=== PATIENT | male | born 1970 | race African-American/Black ===

== ENCOUNTER 2018-09-17 10:03 | Inpatient (IN) | payer OTHER, MEDICAID ==
[~2018-09-17] VITALS: Ht 190.5 cm; Wt 88.0 kg
[~2018-09-17 10:03] MED LIST: CARV25TA55 PO; LISI40TA4 PO; LON10 PO; NOR10 PO; SPIR25TA PO
--- NOTE | 2018-09-17 10:10 | NUR ---
Note sheldon in EDM - 09/17/18 at 1031 by [email or web address] Pt presents to ER as he was sent by his dialysis facility for "low hemoglobin". Pt also states he's been coughing and feels slightly sob x 3 weeks. Pt current bp 203/141 but states his bp is "normally high". otherwise, pt denies any other complaint, AOX4, ambulatory.
[2018-09-17 10:12] VITALS: BP_SYST 210
--- NOTE | 2018-09-17 10:19 | NUR ---
Pt placed in bed 2
--- NOTE | 2018-09-17 10:25 | NUR ---
ER Dr. Martin at bedside examining patient.
--- NOTE | 2018-09-17 10:40 | NUR ---
# 20 gauge angiocath placed to L UPPER ARM. Use of asceptic technique. Opsite placed over site. Blood return noted. Blood for lab drawn from site. Flushed with 10 cc of normal saline. No evidence of infiltration noted. Patient tolerated well.
[2018-09-17 11:03] LABS: HEMATOCRIT 25.7 % (36-54); HEMOGLOBIN 8.2 g/dL (14.0-18.0); MEAN CORPUSCULAR HEMOGLOBIN 30 pg (27-31); MEAN CORPUSCULAR HGB CONC 32 % (32-36); MEAN CORPUSCULAR VOLUME 94 fL (79.0-98.0); RED BLOOD CELL COUNT(AUTO) 2.74 MIL/uL (4.2-6.2); WHITE BLOOD COUNT (AUTO) 9.7 K/uL (4.8-10.8)
[2018-09-17 11:04] LABS: BASOPHILS % (AUTO) 0.3 % (0.0-2.0); EOSINOPHILS # (AUTO) 0.3 K/uL (0.0-0.4); EOSINOPHILS % (AUTO) 2.9 % (0.0-4.0); LYMPHOCYTES # (AUTO) 1.2 K/uL (1.0-5.5); MONOCYTES # (AUTO) 0.6 K/uL (0.0-1.0); MONOCYTES % (AUTO) 5.7 % (1.7-9.3); NEUTROPHILS # (AUTO) 7.6 K/uL (1.8-7.7); NEUTROPHILS % (AUTO) 79.1 % (40.0-70.0); PLATELET COUNT (AUTO) 122 K/uL (130-430); RED CELL DISTRIBUTION WIDTH 20.8 % (9.0-15.0)
[2018-09-17 11:12] LABS: CALCIUM 9.4 mg/dL (8.4-11.0); CREATININE 5.8 mg/dL (0.55-1.30); POTASSIUM 3.8 mmol/L (3.5-5.1)
[2018-09-17 11:13] LABS: ALBUMIN 3.2 g/dL (3.4-4.8); TOTAL BILIRUBIN 1.3 mg/dL (0.0-1.0)
--- NOTE | 2018-09-17 11:20 | NUR ---
Dr. Martin at bedside speaking with pt.
[2018-09-17] MEDS ORDERED: hydrALAZINE HCL 20 MG/ML VIAL IVP ONE (11:30)
--- NOTE | 2018-09-17 11:35 | NUR ---
Pt unable to provide list of home medications at this time, but has given instructions to his mother who will go home and retrieve meds.
[2018-09-17] MEDS ORDERED: NITROGLYCERIN 1 INCH (GM) OINT. TP ONE (11:45)
[2018-09-17] MEDS ORDERED: FUROSEMIDE 100 MG/10 ML VIAL IVP ONE (11:45)
--- NOTE | 2018-09-17 12:03 | NUR ---
Pt medicated as ordered by ER Dr. Martin. Pt tolerated well; will continue to monitor.
--- NOTE | 2018-09-17 12:10 | NUR ---
Patient will be admitted to care of Dr. Manjarrez. Admitted to tele unit. Will go to room 110a. Belongings list completed. Summary report printed. Report will be given at bedside.
--- NOTE | 2018-09-17 12:12 | NUR ---
CONSULTATION PAGED/CALLED Reason for Consultation: [] DIALYSIS, (ESRD) Person Who was Notified: [] FORD Consulting Physician: [] DR Shagufta MAYO [employer] Executive Specialty: [] ORDNANCE TRUCK INSTALLATION SUPERVISOR Ordering Physician: [] DR ANDERSEN
--- NOTE | 2018-09-17 12:15 | NUR ---
ADMISSION NOTE Received patient from ER via gurney. Patient admitted with diagnosis of CHF AND FLUID OVERLOAD. Patient is awake, alert, oriented X 4. Patient oriented to hospital room, call light, toileting, pain management and safety-teach back done. Patient informed that JASE will be RN nurse and that their room number is 110a. Personal belongings checked and Belongings List documented. Call light within reach.
[2018-09-17 12:22] VITALS: BP_SYST 191
[2018-09-17] MEDS ORDERED: LISINOPRIL 20 MG TABLET PO ONE (13:00)
[2018-09-17] MEDS ORDERED: MINOXIDIL 10 MG TABLET (LONITEN) PO ONE (13:00)
[2018-09-17] MEDS ORDERED: EPOETIN ALFA 20,000 UNITS/ML VIAL SUBCUT ONE (13:00)
[2018-09-17] MEDS ORDERED: CARVEDILOL 25 MG TABLET (COREG) PO ONE (13:00)
[2018-09-17] MEDS ORDERED: amLODIPine BESYLATE 10 MG TABLET PO ONE (13:00)
--- NOTE | 2018-09-17 14:15 | NUR ---
RN ROUNDS PATIENT IS RESTING COMFORTABLY IN BED. NO S/S OF DISTRESS OR SOB. PATIENT IS ALERT AND ORIENTED. PATIENT ASKED FOR A NASAL CANNULA BECAUSE OF THE FEELING OF SOB. PATIENT PUT ON 2 L NASAL CANNULA. HEMODIALYSIS CONSENT SIGNED AN ORDERS GIVEN TO MEDICAL RESIDENT FOR TOMORROW. PATIENT AWARE. NO NEEDS AT THIS TIME. CALL LIGHT IN REACH, BED IN LOWEST POSITION, AND WILL CONTINUE TO MONITOR.
[2018-09-17 16:02] VITALS: BP_SYST 179
[2018-09-17] MEDS ORDERED: hydrALAZINE HCL 20 MG/ML VIAL IVP PRN (16:15)
[2018-09-17] MEDS ORDERED: cloNIDine HCL 0.2 MG TABLET PO PRN (16:15)
[2018-09-17 16:29] VITALS: BP_SYST 150
--- NOTE | 2018-09-17 16:45 | NUR ---
DNR STATUS DR. ANDERSEN DISCUSSED WITH PATIENT AT BEDSIDE OVER CODE STATUS. PATIENT STATES THAT HE DOES NOT WANT RESUSCITATION EFFORTS MADE. DR. ANDERSEN DISCUSSES AT LENGTH WHAT THAT ENTAILED AND ALL THE POSSIBLE OPTIONS AVAILABLE. PATIENT VERBALIZED UNDERSTANDING AND SAID HE WOULD LIKE TO BE DNR. CODE STATUS FORM FILLED OUT AND SIGNED BY DR. ANDERSEN AND RNJASE.
--- NOTE | 2018-09-17 16:49 | NUR ---
CONSULTATION PAGED/CALLED Reason for Consultation: [] ELEVATED TROP Person Who was Notified: [] DEEPTHI Consulting Physician: [] DR POTTER NUMERICAL CONTROL NESTING OPERATOR FOR DR GALEANO Iuss Master Analyst Specialty: [] CARDIOLOGY Ordering Physician: [] DR June ANDERSEN
--- NOTE | 2018-09-17 16:50 | NUR ---
CONSULTATION PAGED/CALLED Reason for Consultation: [] RENAL FAILURE Person Who was Notified: [] KORIN Consulting Physician: [] DR DILEEP Hong Inclusion Paraeducator Specialty: [] NEPHROLOGY Ordering Physician: [] DR ANDERSEN
[2018-09-17] MEDS ORDERED: NIFE-2 PO (17:12)
--- NOTE | 2018-09-17 18:38 | NUR ---
CLOSING NOTE: PATIENT IS RESTING COMFORTABLY IN BED. NO S/S OF DISTRESS OR SOB. PATIENT IS ALERT AND ORIENTED. ALL NEEDS MET DURING SHIFT. CALL LIGHT IN REACH, BED IN LOWEST POSITION, AND WILL GIVE REPORT TO NIGHT NURSE.
[2018-09-17 20:10] VITALS: BP_SYST 134
--- NOTE | 2018-09-17 20:10 | NUR ---
Opening notes/Refused bed alarm Pt AAOx4, VSS. no acute distress noted. Pt denies any pain at this time. IV saline lock L. AC 20G clear, patent. R. chest portacath dressing C/D/I. David SCD's placed. Pt refused bed alarm on. Updated with plan of care and HD order for tomorrow, pt verbalized understanding. Call light within reach. Personal cane at bedside. Will continue to monitor.
[2018-09-17] MEDS: SPIRONOLACTONE 25 MG TABLET (ALDACTONE) PO SCH (20:29)
[2018-09-17] MEDS: MINOXIDIL 10 MG TABLET (LONITEN) PO SCH (20:29)
[2018-09-17] MEDS: CARVEDILOL 25 MG TABLET (COREG) PO SCH (20:30)
--- NOTE | 2018-09-17 22:10 | NUR ---
Rounds Pt asleep. No s/s distress noted. Call light within reach. David SCDs on. To monitor.
[2018-09-18] VITALS (7 sets, daily range): BP systolic 134–167
--- NOTE | 2018-09-18 00:40 | NUR ---
Rounds Pt asleep. No s/s distress noted. Call light within reach. Bed low, locked, siderails up. To monitor.
--- NOTE | 2018-09-18 03:05 | NUR ---
Rounds Pt asleep. Respirations unlabored. Safety measures in place. Call light within reach. To monitor.
--- NOTE | 2018-09-18 06:40 | NUR ---
Closing notes Pt asleep, easily arousable. SR on the monitor. No c/o pain. IV saline lock L. AC 20G clear, patent. Pt awaiting dialysis today. Call light within reach. All needs met throughout the night. To endorse to AM nurse.
[2018-09-18 07:13] LABS: BASOPHILS % (AUTO) 0.4 % (0.0-2.0); EOSINOPHILS # (AUTO) 0.3 K/uL (0.0-0.4); EOSINOPHILS % (AUTO) 3.9 % (0.0-4.0); HEMATOCRIT 23.8 % (36-54); HEMOGLOBIN 7.9 g/dL (14.0-18.0); LYMPHOCYTES # (AUTO) 1.6 K/uL (1.0-5.5); MEAN CORPUSCULAR HEMOGLOBIN 31 pg (27-31); MEAN CORPUSCULAR HGB CONC 33 % (32-36); MEAN CORPUSCULAR VOLUME 94 fL (79.0-98.0); MONOCYTES # (AUTO) 0.4 K/uL (0.0-1.0); NEUTROPHILS # (AUTO) 5.2 K/uL (1.8-7.7); NEUTROPHILS % (AUTO) 67.7 % (40.0-70.0); PLATELET COUNT (AUTO) 99 K/uL (130-430); RED BLOOD CELL COUNT(AUTO) 2.53 MIL/uL (4.2-6.2); RED CELL DISTRIBUTION WIDTH 21.5 % (9.0-15.0); WHITE BLOOD COUNT (AUTO) 7.5 K/uL (4.8-10.8)
--- NOTE | 2018-09-18 07:40 | NUR ---
AM NOTES- IN BED, AWAKE ALERT AND ORIENTED. DENIES ANY PAIN OR DISCOMFORT. AMBULATE WITH CANE TO THE BATHROOM. ENC TO CALL FOR HELP. REFUSES BED ALARM. ON O2 2L. HAS OCCASSIONAL COUGH. IVL. SCAHEDULED FOR HD TODAY. SAFETY PRECAUTION OBSERVED. CALL LIGHT IN REACH. WILL MONITOR.
[2018-09-18 07:53] LABS: POTASSIUM 4.5 mmol/L (3.5-5.1)
[2018-09-18 07:54] LABS: CALCIUM 9.5 mg/dL (8.4-11.0)
[2018-09-18 07:56] LABS: CREATININE 8.34 mg/dL (0.55-1.30)
[2018-09-18 07:58] LABS: PHOSPHORUS 4.5 mg/dL (2.7-4.5)
[2018-09-18 07:59] LABS: ALBUMIN 2.7 g/dL (3.4-4.8); FREE T4 (FREE THYROXINE) 1.4 ng/dL (0.6-1.6); THYROID STIMULATING HORMONE 0.95 uIu/mL (0.34-4.82); TOTAL BILIRUBIN 0.9 mg/dL (0.0-1.0)
--- NOTE | 2018-09-18 08:00 | NUR ---
NOTE- PT STATED THAT HE HAS ALLERGIC TO WHEAT. CALLED AND INFORMED DIETARY.
[2018-09-18] MEDS: MINOXIDIL 10 MG TABLET (LONITEN) PO SCH ×2 (09:00→21:46)
[2018-09-18] MEDS: CARVEDILOL 25 MG TABLET (COREG) PO SCH ×2 (09:00→21:45)
--- NOTE | 2018-09-18 10:11 | NUR ---
Notes In bed, watching tv. no distress noted. Seen by Dr. Chin at bedside. Aware of troponin and 2d echo results.
--- NOTE | 2018-09-18 10:12 | NUR ---
MEDs B/P meds held. Pt will have dialysis today. Pt made aware.
[2018-09-18] MEDS ORDERED: hydrALAZINE HCL 25 MG TABLET PO ONE (10:30)
--- NOTE | 2018-09-18 11:53 | NUR ---
Notes In bed, resting denies any pain or discomfort. no distress noted.
--- NOTE | 2018-09-18 13:03 | NUR ---
HD Dialysis nurse at bedside to start dialysis.
--- NOTE | 2018-09-18 14:58 | NUR ---
Notes- Pt still on dialysis at this time. no acute distress noted.
--- NOTE | 2018-09-18 16:18 | NUR ---
HD- HD DONE WITH 2L OUT. B/P 148/91, WILL GIVE B/P MEDS.
[2018-09-18] MEDS: amLODIPine BESYLATE 10 MG TABLET PO SCH (16:24)
[2018-09-18] MEDS: LISINOPRIL 20 MG TABLET PO SCH (16:24)
[2018-09-18] MEDS ORDERED: EPOETIN ALFA 10,000 UNITS/ML VIAL SUBCUT ONE (18:15)
[2018-09-18] MEDS ORDERED: SOD FERRIC GLUC COMPLEX/SUC 125 MG in NS 100 ML IV SCH (18:15)
--- NOTE | 2018-09-18 18:16 | NUR ---
MD ROUNDS Seen by Dr. Manjarrez at bedside.
--- NOTE | 2018-09-18 18:28 | NUR ---
Notes In bed, eating dinner. Denies any pain or discomfort. just feel weak after dialysis. No acute distress noted. will continue to monitor.
--- NOTE | 2018-09-18 19:00 | NUR ---
change of shift.pt.presents hx;hemo-dialysis.pt.dialized;09/18/18.pt.presents perma -cath;rt.svc. dsg intact.pt.presents quiescent affect,no c/o pain,nausea.pt.capable to reposition self.call sridhar valdez w/in the pt's reach.family member @bedside.
--- NOTE | 2018-09-18 20:00 | NUR ---
pt.assessed.v/s assessed;values w/in normal limits.no c/o pain,nausea.i have apprised the pt.that snacks are available w/in shift.no requests@this hour.scd's are applied.i have inquired,to confirm,that the pt.refused the bed-alarm st.pt.stated he has refused the bed alarm set.pt.capable to reposition self.call light.telephone placed w/in the pt's reach.
--- NOTE | 2018-09-18 20:30 | NUR ---
pt.has requested snacks.i have provide the snacks.pt.has requested a blanket.i have provide the blanket;warmed. no additional requests.
--- NOTE | 2018-09-18 21:00 | NUR ---
2100p medications administered.i have administered;epogen:10k units;dose.iron;ferriclet;ivpb ordered:medication not available until the am;09/19/18.no requests@this hour.
--- NOTE | 2018-09-18 21:30 | NUR ---
pt.requested the scd's be removed;to facilitate the ambulation to the restroom. i have removed the sc'ds.
[2018-09-18] MEDS: NEPHROVITE, (FOLIC ACID/VITAMIN B COMP W-C 1 TAB) PO SCH (21:43)
[2018-09-18] MEDS: SPIRONOLACTONE 25 MG TABLET (ALDACTONE) PO SCH (21:44)
[2018-09-18] MEDS: hydrALAZINE HCL 25 MG TABLET PO SCH (21:45)
--- NOTE | 2018-09-18 22:00 | NUR ---
pt.assessed.pt.presents quiescent affect;calm,somnolent.general status stable.respiratory status stable. scd's sleeves re-pplied.pt.capable to reposition self.call light/telephone w/in the pt's reach.
--- NOTE | 2018-09-19 | NUR ---
pt.assessed.v/s assessed;values w/in normal limits.no c/o pain,nausea.no requests@this hour. pt./capable to reposition self.general status stable.respiratory status stable.call light/telephone w/in the pt's reach.
--- NOTE | 2018-09-19 02:00 | NUR ---
pt.assessed.pt.presents quiescent affect;calm,somnolent.general status stable.respiratory status stable. pt.capable to reposition self.call light./telephone w/in the pt's reach.
[2018-09-19 02:17] VITALS: BP_SYST 133
--- NOTE | 2018-09-19 02:30 | NUR ---
pt.assessed.pt.located in restroom.pt.presents cough;profound level.i inquired if the pt.requires medication. pt.stated he thinks so.i reviewed the [facility];med-list.no medications ordered for cough,nor hhn-treatments per r/t.pt.stated he presents headache;2/t cough;isolated back of eyes bilateral.review of the emar;med-list; no medication ordered;pain. to be paged.
--- NOTE | 2018-09-19 02:53 | NUR ---
PAGED x2 SECOND PAGE SENT OUT TO DR. ANDERSEN, SPOKE WITH TG
[2018-09-19] MEDS ORDERED: ACETAMINOPHEN 325 MG TABLET PO PRN (03:30)
[2018-09-19] MEDS ORDERED: guaiFENesin/DEXTROMETHORPHAN 118 ML PO PRN (03:30)
[2018-09-19] MEDS ORDERED: ACETAMINOPHEN 325 MG TABLET ONE (03:42)
[2018-09-19] MEDS: IPRATROPIUM/ALBUTEROL SULFATE 3 ML AMPUL.NEB (DUONEB) INH PRN ×3 (03:45→19:02)
[2018-09-19 03:49] VITALS: BP_SYST 133
[2018-09-19] MEDS ORDERED: guaiFENesin/DEXTROMETHORPHAN 10 ML UDC ONE (03:54)
[2018-09-19] MEDS: HYDROcodone/ACETAMIN 5-325 MG TAB (NORCO/ VICODIN) PO PRN ×4 (04:27→18:45)
--- NOTE | 2018-09-19 04:30 | NUR ---
had returned the previous pages; paged x3.i apprised of the pt's status;sob,cough, pain:headache;eyes. had ordered hhn;duo-neb;q-4hrs/p:sob,wheezes.robitussin;dm:po 10ml q-4hrs/cough. had originally ordered tylenol;650mg po;pain.i had apprised the pt.that had ordered tylenol: plain.pt stated,no it will not be effective;pt.refused the tylenol. was paged re;pain medication. ordered norco;5/325mg po q-4hrs/p pain.pt.had received the hhn treatment;initial treatment,the robitussin,the norco;5/325mg po tablet.to f/u in assessment of the efficacy of the medicinal interventions.
[2018-09-19] MEDS ORDERED: HYDROcodone/ACETAMIN 5-325 MG TAB (NORCO/ VICODIN) ONE (04:31)
--- NOTE | 2018-09-19 06:00 | NUR ---
pt.assessed.i inquired,of the pt.,his general status.pt.stated he feels much better.breathing pattern;calm,;un-labored. laborer aquatic life drawing blood sample@this hour.no c/o pain,nausea.no requests@this hour.i have weighed the pt.2/t;chf, hemo-dialysis.general status stable.respiratory status stable.call light/telephone w/in the pt's reach.
[2018-09-19 07:09] LABS: CALCIUM 9.5 mg/dL (8.4-11.0); POTASSIUM 4.3 mmol/L (3.5-5.1)
[2018-09-19 07:10] LABS: BASOPHILS % (AUTO) 0.1 % (0.0-2.0); EOSINOPHILS # (AUTO) 0.2 K/uL (0.0-0.4); EOSINOPHILS % (AUTO) 2.4 % (0.0-4.0); HEMATOCRIT 24.9 % (36-54); HEMOGLOBIN 8.1 g/dL (14.0-18.0); LYMPHOCYTES # (AUTO) 1.1 K/uL (1.0-5.5); MEAN CORPUSCULAR HEMOGLOBIN 31 pg (27-31); MEAN CORPUSCULAR HGB CONC 33 % (32-36); MEAN CORPUSCULAR VOLUME 95 fL (79.0-98.0); MONOCYTES # (AUTO) 0.6 K/uL (0.0-1.0); MONOCYTES % (AUTO) 5.8 % (1.7-9.3); NEUTROPHILS # (AUTO) 8.4 K/uL (1.8-7.7); NEUTROPHILS % (AUTO) 80.7 % (40.0-70.0); PLATELET COUNT (AUTO) 128 K/uL (130-430); RED BLOOD CELL COUNT(AUTO) 2.62 MIL/uL (4.2-6.2); RED CELL DISTRIBUTION WIDTH 21.2 % (9.0-15.0); TOTAL IRON BIND. CAPACITY 179 ug/dL (250-450); WHITE BLOOD COUNT (AUTO) 10.3 K/uL (4.8-10.8)
[2018-09-19 07:23] LABS: CREATININE 7.67 mg/dL (0.55-1.30)
--- NOTE | 2018-09-19 07:30 | NUR ---
PAGED PAGED STACY TERRY AT [phone] SPOKE WITH MOISE.
[2018-09-19 08:00] VITALS: BP_SYST 146
--- NOTE | 2018-09-19 08:00 | NUR ---
Opening Note/refuse bed alarm received report from date night sitter RN, pt resting in bed, A&Ox4, respirations even and unlabored on room air, no acute distress noted, IV site clean, dry, and intact, permacath to right upper chest clean, dry, and intact, no bleeding, pt educated on use of call light and asked to call for assistance, pt verbalized understanding, call light in reach, pt educated on use of bed alarm for pt safety, pt refusing bed alarm, bed in low and locked position, fall and aspiration precautions in place.
[2018-09-19] MEDS: MINOXIDIL 10 MG TABLET (LONITEN) PO SCH ×2 (08:07→20:14)
[2018-09-19] MEDS: amLODIPine BESYLATE 10 MG TABLET PO SCH (08:07)
[2018-09-19] MEDS: CARVEDILOL 25 MG TABLET (COREG) PO SCH ×2 (08:08→20:14)
[2018-09-19] MEDS: LISINOPRIL 20 MG TABLET PO SCH (08:08)
[2018-09-19] MEDS: NEPHROVITE, (FOLIC ACID/VITAMIN B COMP W-C 1 TAB) PO SCH (08:09)
[2018-09-19] MEDS: hydrALAZINE HCL 25 MG TABLET PO SCH ×2 (08:09→20:13)
--- NOTE | 2018-09-19 08:15 | NUR ---
Medication pt educated on medication use and side effects, pt verbalized understanding, tolerated medication administration well, no acute distress noted, fall and aspiration precautions in place.
[2018-09-19] MEDS: SOD FERRIC GLUC COMPLEX/SUC 125 MG in NS 100 ML IV SCH (08:50)
--- NOTE | 2018-09-19 09:01 | NUR ---
Pain Management/Medication pt complaint of pain 02/15 to head, pt educated on use and side effects effects of PRN pain medication and all medications, pt verbalized understanding, tolerated medication administration well, no acute distress noted, Dr. Chin at bedside speaking with pt, fall and aspiration precautions in place.
--- NOTE | 2018-09-19 10:57 | NUR ---
RN Rounds pt sleeping in bed, respirations even and unlabored on room air, no acute distress noted, fall and aspiration precautions in place.
[2018-09-19 12:04] VITALS: BP_SYST 131
[2018-09-19] MEDS: guaiFENesin/DEXTROMETHORPHAN 10 ML UDC PO PRN ×2 (12:59→23:58)
--- NOTE | 2018-09-19 13:03 | NUR ---
Pain Management/Cough/Medication pt complaint of pain 5/10 to head, pt complaint of cough, pt educated on use and side effects of PRN medications for pain and for cough, pt verbalized understanding, tolerated medication administration well, no acute distress noted, fall and aspiration precautions in place.
[2018-09-19] MEDS ORDERED: NEPHROVITE, (FOLIC ACID/VITAMIN B COMP W-C 1 TAB) PO ONE (14:30)
--- NOTE | 2018-09-19 14:50 | NUR ---
Medication pt educated on medication use and side effects, pt verbalized understanding, tolerated medication administration well, no acute distress noted, fall and aspiration precautions in place.
[2018-09-19 16:04] VITALS: BP_SYST 116
--- NOTE | 2018-09-19 16:47 | NUR ---
RN Rounds pt resting in bed, pt provided with ice chips, pt reports pain and cough are controlled at this time, no acute distress noted, fall and aspiration precautions in place.
--- NOTE | 2018-09-19 18:46 | NUR ---
Pain Management/Medication pt complaint of pain 5/10 to head, pt educated on use and side effects of PRN pain medication, pt verbalized understanding, tolerated medication administration well, no acute distress noted, no additional needs at this time, fall and aspiration precautions in place.
--- NOTE | 2018-09-19 19:15 | NUR ---
Closing Note pt resting in bed, A&Ox4, respirations even and unlabored on room air, no acute distress noted, IV site clean, dry, and intact, permacath to right upper chest clean, dry, and intact, pt educated on use of call light and asked to call for assistance, pt verbalized understanding, call light in reach, pt educated on use of bed alarm for pt safety, pt refusing bed alarm, bed in locked and low position, fall and aspiration precautions in place, care endorsed to Emperatriz WALSH.
--- NOTE | 2018-09-19 19:40 | NUR ---
ROUNDS PATIENT IN BED, NOT IN DISTRESS, VITALS STABLE, DENIES ANY PAIN AND DISCOMFORT AT THIS TIME. ASSESSMENT DONE AND DOCUMENTED. SEE FLOWSHEET. NEEDS ATTENDED TO. SAFETY AND FALL PRECAUTION MEASURES IN PLACED. BED IN LOW AND LOCKED POSITION. CALL LIGHT PLACED WITHIN REACH.
[2018-09-19] MEDS: SPIRONOLACTONE 25 MG TABLET (ALDACTONE) PO SCH (20:15)
--- NOTE | 2018-09-19 21:12 | NUR ---
MEDICATION DUE MEDICATIONS GIVEN SCHEDULED, TOLERATED WELL. WILL CONTINUE TO MONITOR.
--- NOTE | 2018-09-20 00:12 | NUR ---
PATIENT RESTING: Patient resting quietly. No acute distress noted. Vital signs within normal range.
[2018-09-20 00:41] VITALS: BP_SYST 126
--- NOTE | 2018-09-20 02:13 | NUR ---
ROUNDS PATIENT ASLEEP, VITALS STABLE, NO SOB NOR PAIN AND DISCOMFORT NOTED. WILL CONTINUE TO MONITOR.
--- NOTE | 2018-09-20 04:13 | NUR ---
PATIENT RESTING: Patient resting quietly. No acute distress noted. Vital signs within normal range.
--- NOTE | 2018-09-20 06:55 | NUR ---
CLOSING NOTES PATIENT AWAKE, VITALS STABLE, NO PAIN AT THIS TIME. ALL NEEDS ATTENDED TO. SAFETY AND FALL PRECAUTION MEASURES MAINTAINED. CALL LIGHT PLACED WITHIN REACH.
--- NOTE | 2018-09-20 07:30 | NUR ---
Opening Note: Patient laying in bed resting. No signs of pain or distress noted. Breathing is even and unlabored with no distress noted. IV patent and intact. SCD's in place. Safety precautions in place; bed in lowest position, wheels locked, side rails x3, and call light within reach. Patient refusing bed alarm. No needs at this time. Will continue to monitor.
[2018-09-20 08:30] VITALS: BP_SYST 159
[2018-09-20] MEDS: NEPHROVITE, (FOLIC ACID/VITAMIN B COMP W-C 1 TAB) PO SCH (08:33)
[2018-09-20] MEDS: hydrALAZINE HCL 25 MG TABLET PO SCH (08:34)
[2018-09-20] MEDS: LISINOPRIL 20 MG TABLET PO SCH (08:34)
[2018-09-20] MEDS: amLODIPine BESYLATE 10 MG TABLET PO SCH (08:34)
[2018-09-20] MEDS: SOD FERRIC GLUC COMPLEX/SUC 125 MG in NS 100 ML IV SCH (08:35)
[2018-09-20] MEDS: MINOXIDIL 10 MG TABLET (LONITEN) PO SCH (08:35)
[2018-09-20] MEDS: CARVEDILOL 25 MG TABLET (COREG) PO SCH (08:35)
--- NOTE | 2018-09-20 08:48 | NUR ---
Patient hostile/aggressive: Patient yelling and cussing at nurses, kicking them out of room. Patient offered shower and refused. Patient refused bed alarm and SCD's. Patient refused assessment of lung sounds.
[2018-09-20] MEDS ORDERED: NEPHROVITE, (FOLIC ACID/VITAMIN B COMP W-C 1 TAB) PO SCH (09:00)
--- NOTE | 2018-09-20 10:30 | NUR ---
Permacath Dressing: Permacath dressing was dirty and coming off, changed in sterile technique. New dressing applied, clean, dry and intact.
[2018-09-20 11:49] VITALS: BP_SYST 122
--- NOTE | 2018-09-20 12:14 | NUR ---
Rounds: Patient in bed eating lunch, no distress noted. Morning medications tolerated well. Safety precautions in place and call light within reach. No needs at this time. Will continue to monitor.
--- NOTE | 2018-09-20 13:55 | NUR ---
Rounds: Patient laying in bed asleep. No signs of pain or discomfort. No signs of SOB or respiratory distress. Will continue to monitor.
[2018-09-20] MEDS ORDERED: EPOETIN ALFA 10,000 UNITS/ML VIAL SUBCUT ONE (16:00)
--- NOTE | 2018-09-20 16:00 | NUR ---
Discharge Arrangement: Per patient "I live with my mom but I can't go home today my whole family is out of town, I'll probably have a ride tomorrow morning." Called mother Sarah Go, but no answer. Dr. Manjarrez made aware. Will endorse to NOC, nurse to follow up with family for discharge arrangements. Addendum: 09/20/18 at 1634 by Delmi Dior RN Asked patient if he would like for me to help make arrangement for transportation to home, per patient "I don't have a house [place] how am i supposed to get in."
[2018-09-20 18:58] VITALS: BP_SYST 122
--- NOTE | 2018-09-20 19:12 | NUR ---
D/C Patient Patient given medication reconciliation form and D/C instructions. Exit Care provided. Patient verbalized understanding. MD discussed with patient the results and treatment provided. Ambulatory with steady gait for discharge to home. Patient in stable condition, ID band removed. IV catheter removed, intact and dressing applied, no active bleeding. Patient educated on pain management. All belongings sent with patient. Discharge instructions given.
[2018-09-21 13:13] LABS: FERRITIN 1050 ng/mL (30-400)
== END 2018-09-20 19:12 | disposition home or self-care (01) | DRG 291 ==
LOC: SED 10:03 → STU 11:39 → SMU 09-20 10:25
PROVIDERS: ADMIT Internal Medicine; ATTEND Internal Medicine
PROC: 5A1D70Z Performance of Urinary Filtration, Intermittent, Less than 6 Hours Per Day (ICD-10-PCS; principal; 2018-09-18)
DX: I13.2 Hypertensive heart and chronic kidney disease with heart failure and with stage 5 chronic kidney disease, or end stage renal disease (principal); N18.6 End stage renal disease; I50.41 Acute combined systolic (congestive) and diastolic (congestive) heart failure; K92.2 Gastrointestinal hemorrhage, unspecified; Z66 Do not resuscitate; D63.1 Anemia in chronic kidney disease; J20.9 Acute bronchitis, unspecified; Z99.2 Dependence on renal dialysis; Z88.8 Allergy status to other drugs, medicaments and biological substances; Z79.899 Other long term (current) drug therapy
CPT/HCPCS: 36415; 71045; 80048; 80053; 80061; 82607; 82728; 83540-TC; 83550-TC; 83880; 84100-TC; 84439; 84443-TC; 84484; 85025; 87081; 90935; 93005; 93306; 94640; 96374; 96375; 99285; G0378; J0360; J0885; J1940; J2916; J7030; J7620

== ENCOUNTER 2019-01-04 08:35 | Inpatient (IN) | payer OTHER, MEDICAID ==
[~2019-01-04] VITALS: Ht 193 cm; Wt 79.6 kg
[~2019-01-04 08:35] MED LIST changes: +NIFE-2 PO
[2019-01-04 08:40] VITALS: BP_SYST 195
[2019-01-04] MEDS ORDERED: hydrALAZINE HCL 20 MG/ML VIAL IVP ONE (09:00)
[2019-01-04 09:43] LABS: BASOPHILS % (AUTO) 0.3 % (0.0-2.0); EOSINOPHILS # (AUTO) 0.1 K/uL (0.0-0.4); EOSINOPHILS % (AUTO) 0.8 % (0.0-4.0); HEMATOCRIT 26.1 % (36-54); HEMOGLOBIN 8.5 g/dL (14.0-18.0); MEAN CORPUSCULAR HEMOGLOBIN 30 pg (27-31); MEAN CORPUSCULAR HGB CONC 33 % (32-36); MEAN CORPUSCULAR VOLUME 92 fL (79.0-98.0); MONOCYTES # (AUTO) 0.8 K/uL (0.0-1.0); MONOCYTES % (AUTO) 6.6 % (1.7-9.3); NEUTROPHILS # (AUTO) 10.3 K/uL (1.8-7.7); NEUTROPHILS % (AUTO) 84.3 % (40.0-70.0); PLATELET COUNT (AUTO) 112 K/uL (130-430); RED BLOOD CELL COUNT(AUTO) 2.83 MIL/uL (4.2-6.2); WHITE BLOOD COUNT (AUTO) 12.2 K/uL (4.8-10.8)
[2019-01-04 09:45] LABS: ANION GAP 8 (5-15); CALCIUM 9.3 mg/dL (8.4-11.0); CHLORIDE 103 mmol/L (98-107); GLUCOSE 103 mg/dL (70-99); POTASSIUM 4.3 mmol/L (3.5-5.1); SODIUM SERUM 136 mmol/L (136-145); UREA NITROGEN, BLOOD 38 mg/dL (8-21)
[2019-01-04 09:50] LABS: ALANINE AMINOTRANSFERASE 7 U/L (12-78); ALBUMIN 3.1 g/dL (3.4-4.8); ASPARTATE AMINOTRANSFERASE < 5 U/L (10-37); TOTAL BILIRUBIN 1.3 mg/dL (0.0-1.0)
[2019-01-04 09:57] LABS: CREATININE 12.14 mg/dL (0.55-1.30); GFR AFRICAN AMERICAN 6 mL/min (>90)
[2019-01-04] MEDS ORDERED: KETOROLAC TROMETHAMINE 30 MG VIAL IVP ONE (10:00)
[2019-01-04 10:04] LABS: INR 1.1 (0.80-1.20); PROTHROMBIN TIME 11.4 SECS (9.5-12.5)
[2019-01-04] MEDS ORDERED: LABETALOL 100 MG/ 20ML VIAL IVP ONE (10:15)
[2019-01-04] MEDS ORDERED: cefTRIAXone 1 GM in D5W 50 ML IV ONE (11:45)
[2019-01-04] MEDS ORDERED: cefTRIAXone 1 GM VIAL ONE (12:17)
[2019-01-04 12:26] VITALS: BP_SYST 159
[2019-01-04] MEDS ORDERED: ALBUTEROL SULFATE 0.083% 2.5 MG/3 ML VIAL.NEB INH PRN (16:00)
[2019-01-04] MEDS ORDERED: IPRATROPIUM BROM 0.5 MG/2.5 ML VIAL.NEB (ATROVENT) INH PRN (16:00)
[2019-01-04 16:13] VITALS: BP_SYST 169
[2019-01-04 16:28] VITALS: BP_SYST 159
[2019-01-04] MEDS: ALBUTEROL SULFATE 0.083% 2.5 MG/3 ML VIAL.NEB INH SCH (19:00)
[2019-01-04] MEDS: IPRATROPIUM BROM 0.5 MG/2.5 ML VIAL.NEB (ATROVENT) INH SCH (19:00)
[2019-01-04 20:00] VITALS: BP_SYST 179
[2019-01-04] MEDS: cefTRIAXone 1 GM in D5W 50 ML IV SCH (21:22)
[2019-01-04] MEDS: methylPREDNISolone SOD SUCC/PF 62.5 MG/ML VIAL IVP SCH (21:33)
[2019-01-04] MEDS: cloNIDine HCL 0.1 MG TABLET PO PRN (21:34)
[2019-01-04] MEDS: MORPHINE 4 MG/ML INJ. SYRINGE IVP PRN (21:35)
[2019-01-04] MEDS: AZITHROMYCIN 500 MG in NS 250 ML IV SCH (22:27)
[2019-01-05] VITALS: BP_SYST 149
[2019-01-05] MEDS: ALBUTEROL SULFATE 0.083% 2.5 MG/3 ML VIAL.NEB INH SCH ×4 (00:37→19:28)
[2019-01-05] MEDS: IPRATROPIUM BROM 0.5 MG/2.5 ML VIAL.NEB (ATROVENT) INH SCH ×4 (00:37→19:28)
[2019-01-05 04:30] VITALS: BP_SYST 188
[2019-01-05] MEDS: cloNIDine HCL 0.1 MG TABLET PO PRN (04:38)
[2019-01-05] MEDS: methylPREDNISolone SOD SUCC/PF 62.5 MG/ML VIAL IVP SCH ×3 (04:57→21:37)
[2019-01-05] MEDS: MORPHINE 4 MG/ML INJ. SYRINGE IVP PRN ×3 (06:51→21:50)
[2019-01-05 08:25] VITALS: BP_SYST 175
[2019-01-05] MEDS ORDERED: NIFEDIPINE 30 MG TAB.ER.24 PO ONE (10:15)
[2019-01-05] MEDS ORDERED: amLODIPine BESYLATE 10 MG TABLET PO ONE (10:15)
[2019-01-05] MEDS ORDERED: MINOXIDIL 10 MG TABLET (LONITEN) PO ONE (10:15)
[2019-01-05] MEDS ORDERED: CARVEDILOL 25 MG TABLET (COREG) PO ONE (10:15)
[2019-01-05 11:35] VITALS: BP_SYST 160
[2019-01-05 15:06] VITALS: BP_SYST 154
[2019-01-05] MEDS: cefTRIAXone 1 GM in D5W 50 ML IV SCH (16:12)
[2019-01-05] MEDS: AZITHROMYCIN 500 MG in NS 250 ML IV SCH (17:12)
[2019-01-05 20:30] VITALS: BP_SYST 136
[2019-01-05] MEDS: SPIRONOLACTONE 25 MG TABLET (ALDACTONE) PO SCH (21:35)
[2019-01-05] MEDS: CARVEDILOL 25 MG TABLET (COREG) PO SCH (21:35)
[2019-01-05] MEDS: MINOXIDIL 10 MG TABLET (LONITEN) PO SCH (21:37)
[2019-01-06] MEDS: IPRATROPIUM BROM 0.5 MG/2.5 ML VIAL.NEB (ATROVENT) INH SCH ×4 (00:12→19:54)
[2019-01-06] MEDS: ALBUTEROL SULFATE 0.083% 2.5 MG/3 ML VIAL.NEB INH SCH ×4 (00:12→19:54)
[2019-01-06 01:17] VITALS: BP_SYST 132
[2019-01-06] MEDS: methylPREDNISolone SOD SUCC/PF 62.5 MG/ML VIAL IVP SCH ×3 (06:17→21:14)
[2019-01-06 08:00] VITALS: BP_SYST 132
[2019-01-06] MEDS: amLODIPine BESYLATE 10 MG TABLET PO SCH (09:00)
[2019-01-06] MEDS: NIFEDIPINE 30 MG TAB.ER.24 PO SCH (09:00)
[2019-01-06] MEDS: CARVEDILOL 25 MG TABLET (COREG) PO SCH ×2 (09:00→21:15)
[2019-01-06] MEDS: MINOXIDIL 10 MG TABLET (LONITEN) PO SCH ×2 (09:00→21:14)
[2019-01-06 12:00] VITALS: BP_SYST 127
[2019-01-06 12:27] LABS: HEPATITIS A AB, IgM Negative (Negative); HEPATITIS B CORE AB, IgM Negative (Negative); HEPATITIS B SURFACE AG Negative (Negative)
[2019-01-06] MEDS: MORPHINE 4 MG/ML INJ. SYRINGE IVP PRN ×2 (12:53→21:16)
[2019-01-06 15:16] VITALS: BP_SYST 139
[2019-01-06] MEDS: cefTRIAXone 1 GM in D5W 50 ML IV SCH (15:36)
[2019-01-06] MEDS: AZITHROMYCIN 500 MG in NS 250 ML IV SCH (16:31)
[2019-01-06 20:00] VITALS: BP_SYST 147
[2019-01-06] MEDS: SPIRONOLACTONE 25 MG TABLET (ALDACTONE) PO SCH (21:16)
[2019-01-06] MEDS ORDERED: MINOXIDIL 10 MG TABLET (LONITEN) ONE (21:41)
[2019-01-07 01:11] VITALS: BP_SYST 136
[2019-01-07] MEDS: ALBUTEROL SULFATE 0.083% 2.5 MG/3 ML VIAL.NEB INH SCH ×4 (01:42→20:02)
[2019-01-07] MEDS: IPRATROPIUM BROM 0.5 MG/2.5 ML VIAL.NEB (ATROVENT) INH SCH ×4 (01:42→20:02)
[2019-01-07] MEDS: methylPREDNISolone SOD SUCC/PF 62.5 MG/ML VIAL IVP SCH ×3 (05:37→21:01)
[2019-01-07] MEDS: MORPHINE 4 MG/ML INJ. SYRINGE IVP PRN ×2 (05:44→21:08)
[2019-01-07 08:23] VITALS: BP_SYST 139
[2019-01-07] MEDS: amLODIPine BESYLATE 10 MG TABLET PO SCH (08:33)
[2019-01-07] MEDS: CARVEDILOL 25 MG TABLET (COREG) PO SCH ×2 (08:33→20:16)
[2019-01-07] MEDS: NIFEDIPINE 30 MG TAB.ER.24 PO SCH (08:33)
[2019-01-07] MEDS: MINOXIDIL 10 MG TABLET (LONITEN) PO SCH ×2 (08:34→20:15)
[2019-01-07 12:34] VITALS: BP_SYST 131
[2019-01-07] MEDS: cefTRIAXone 1 GM in D5W 50 ML IV SCH (15:26)
[2019-01-07] MEDS: AZITHROMYCIN 500 MG in NS 250 ML IV SCH (16:14)
[2019-01-07 16:41] VITALS: BP_SYST 126
[2019-01-07 20:00] VITALS: BP_SYST 111
[2019-01-07] MEDS: SPIRONOLACTONE 25 MG TABLET (ALDACTONE) PO SCH (20:15)
[2019-01-08 00:12] VITALS: BP_SYST 113
[2019-01-08] MEDS: ALBUTEROL SULFATE 0.083% 2.5 MG/3 ML VIAL.NEB INH SCH ×4 (00:14→19:49)
[2019-01-08] MEDS: IPRATROPIUM BROM 0.5 MG/2.5 ML VIAL.NEB (ATROVENT) INH SCH ×4 (00:14→19:49)
[2019-01-08] MEDS: methylPREDNISolone SOD SUCC/PF 62.5 MG/ML VIAL IVP SCH ×4 (05:08→20:39)
[2019-01-08] MEDS: MORPHINE 4 MG/ML INJ. SYRINGE IVP PRN ×2 (06:37→15:23)
[2019-01-08] MEDS: MINOXIDIL 10 MG TABLET (LONITEN) PO SCH ×2 (08:26→20:39)
[2019-01-08] MEDS: amLODIPine BESYLATE 10 MG TABLET PO SCH (08:26)
[2019-01-08] MEDS: CARVEDILOL 25 MG TABLET (COREG) PO SCH ×2 (08:26→20:38)
[2019-01-08] MEDS: NIFEDIPINE 30 MG TAB.ER.24 PO SCH (08:27)
[2019-01-08 08:29] VITALS: BP_SYST 135
[2019-01-08] MEDS ORDERED: HEPARIN SODIUM, PORCINE 10,000 UNITS/ 10 ML VIAL ONE (09:10)
[2019-01-08 11:29] VITALS: BP_SYST 134
[2019-01-08] MEDS: cefTRIAXone 1 GM in D5W 50 ML IV SCH (15:10)
[2019-01-08 15:37] VITALS: BP_SYST 140
[2019-01-08] MEDS: AZITHROMYCIN 500 MG in NS 250 ML IV SCH (16:14)
[2019-01-08 19:00] VITALS: BP_SYST 135
[2019-01-08 20:00] VITALS: BP_SYST 135
[2019-01-08] MEDS: SPIRONOLACTONE 25 MG TABLET (ALDACTONE) PO SCH (20:37)
[2019-01-09] MEDS: ALBUTEROL SULFATE 0.083% 2.5 MG/3 ML VIAL.NEB INH SCH ×4 (02:20→19:52)
[2019-01-09] MEDS: IPRATROPIUM BROM 0.5 MG/2.5 ML VIAL.NEB (ATROVENT) INH SCH ×4 (02:20→19:53)
[2019-01-09 04:10] VITALS: BP_SYST 148
[2019-01-09] MEDS: methylPREDNISolone SOD SUCC/PF 62.5 MG/ML VIAL IVP SCH ×3 (06:01→21:23)
[2019-01-09 07:55] VITALS: BP_SYST 136
[2019-01-09] MEDS: MINOXIDIL 10 MG TABLET (LONITEN) PO SCH ×2 (09:28→21:22)
[2019-01-09] MEDS: amLODIPine BESYLATE 10 MG TABLET PO SCH (09:29)
[2019-01-09] MEDS: CARVEDILOL 25 MG TABLET (COREG) PO SCH ×2 (09:29→21:23)
[2019-01-09] MEDS: NIFEDIPINE 30 MG TAB.ER.24 PO SCH (09:29)
[2019-01-09] MEDS: MORPHINE 4 MG/ML INJ. SYRINGE IVP PRN ×3 (09:42→22:10)
[2019-01-09 11:20] VITALS: BP_SYST 121
[2019-01-09 15:26] VITALS: BP_SYST 137
[2019-01-09] MEDS: cefTRIAXone 1 GM in D5W 50 ML IV SCH (15:41)
[2019-01-09 20:00] VITALS: BP_SYST 157
[2019-01-09] MEDS: SPIRONOLACTONE 25 MG TABLET (ALDACTONE) PO SCH (21:23)
[2019-01-10 00:40] VITALS: BP_SYST 122
[2019-01-10] MEDS: ALBUTEROL SULFATE 0.083% 2.5 MG/3 ML VIAL.NEB INH SCH ×4 (01:06→20:14)
[2019-01-10] MEDS: IPRATROPIUM BROM 0.5 MG/2.5 ML VIAL.NEB (ATROVENT) INH SCH ×4 (01:06→20:14)
[2019-01-10] MEDS: methylPREDNISolone SOD SUCC/PF 62.5 MG/ML VIAL IVP SCH ×3 (06:17→21:05)
[2019-01-10 06:53] LABS: HEMATOCRIT 30.4 % (36-54); HEMOGLOBIN 9.9 g/dL (14.0-18.0); MEAN CORPUSCULAR HEMOGLOBIN 30 pg (27-31); MEAN CORPUSCULAR HGB CONC 33 % (32-36); MEAN CORPUSCULAR VOLUME 92 fL (79.0-98.0); PLATELET COUNT (AUTO) 163 K/uL (130-430); RED CELL DISTRIBUTION WIDTH 20.9 % (9.0-15.0)
[2019-01-10 07:05] VITALS: BP_SYST 122
[2019-01-10 07:33] LABS: CALCIUM 9.1 mg/dL (8.4-11.0); POTASSIUM 5.4 mmol/L (3.5-5.1); WHITE BLOOD COUNT (AUTO) 24.8 K/uL (4.8-10.8)
[2019-01-10 07:44] LABS: CREATININE 11.68 mg/dL (0.55-1.30)
[2019-01-10 07:50] VITALS: BP_SYST 126
[2019-01-10] MEDS: NIFEDIPINE 30 MG TAB.ER.24 PO SCH (09:05)
[2019-01-10] MEDS: MINOXIDIL 10 MG TABLET (LONITEN) PO SCH ×2 (09:06→21:04)
[2019-01-10] MEDS: CARVEDILOL 25 MG TABLET (COREG) PO SCH ×2 (09:07→21:04)
[2019-01-10] MEDS: amLODIPine BESYLATE 10 MG TABLET PO SCH (09:07)
[2019-01-10] MEDS: MORPHINE 4 MG/ML INJ. SYRINGE IVP PRN ×3 (09:20→20:19)
[2019-01-10 12:17] LABS: ATYPICAL LYMPHOCYTES % 0 % (0-0); BAND % (MANUAL) 3 % (0-6); BASOPHILS % (MANUAL) 0 % (0-2); EOSINOPHILS % (MANUAL) 0 % (0-7); LYMPHOCYTES % (MANUAL) 4 % (20-46); MONOCYTES % (MANUAL) 5 % (0-11)
[2019-01-10 13:25] VITALS: BP_SYST 141
[2019-01-10] MEDS ORDERED: PANTOPRAZOLE SODIUM 40 MG TAB PO ONE (16:15)
[2019-01-10] MEDS: cefTRIAXone 1 GM in D5W 50 ML IV SCH (16:48)
[2019-01-10 20:05] VITALS: BP_SYST 147
[2019-01-10] MEDS: metroNIDAZOLE 500 mg/NS 100 ML IV SCH (20:18)
[2019-01-10] MEDS: SPIRONOLACTONE 25 MG TABLET (ALDACTONE) PO SCH (21:05)
[2019-01-11 00:32] VITALS: BP_SYST 150
[2019-01-11] MEDS: ALBUTEROL SULFATE 0.083% 2.5 MG/3 ML VIAL.NEB INH SCH ×4 (01:00→20:40)
[2019-01-11] MEDS: IPRATROPIUM BROM 0.5 MG/2.5 ML VIAL.NEB (ATROVENT) INH SCH ×4 (01:00→20:39)
[2019-01-11] MEDS: methylPREDNISolone SOD SUCC/PF 62.5 MG/ML VIAL IVP SCH (06:15)
[2019-01-11] MEDS: PANTOPRAZOLE SODIUM 40 MG TAB PO SCH ×2 (06:15→17:08)
[2019-01-11 07:43] LABS: BASOPHILS # (AUTO) 0.1 K/uL (0.0-0.2); BASOPHILS % (AUTO) 0.3 % (0.0-2.0); EOSINOPHILS % (AUTO) 0.1 % (0.0-4.0); HEMATOCRIT 29.2 % (36-54); HEMOGLOBIN 9.8 g/dL (14.0-18.0); LYMPHOCYTES # (AUTO) 0.8 K/uL (1.0-5.5); LYMPHOCYTES % (AUTO) 2.8 % (20.5-51.5); MEAN CORPUSCULAR HEMOGLOBIN 31 pg (27-31); MEAN CORPUSCULAR HGB CONC 34 % (32-36); MEAN CORPUSCULAR VOLUME 91 fL (79.0-98.0); MONOCYTES % (AUTO) 3.5 % (1.7-9.3); NEUTROPHILS # (AUTO) 26.7 K/uL (1.8-7.7); PLATELET COUNT (AUTO) 177 K/uL (130-430); RED BLOOD CELL COUNT(AUTO) 3.21 MIL/uL (4.2-6.2); RED CELL DISTRIBUTION WIDTH 21.4 % (9.0-15.0); WHITE BLOOD COUNT (AUTO) 28.6 K/uL (4.8-10.8)
[2019-01-11 07:50] VITALS: BP_SYST 151
[2019-01-11 07:56] LABS: NEUTROPHILS % (AUTO) 93.3 % (40.0-70.0)
[2019-01-11 07:57] LABS: CALCIUM 9.1 mg/dL (8.4-11.0); POTASSIUM 5.5 mmol/L (3.5-5.1)
[2019-01-11] MEDS: MORPHINE 4 MG/ML INJ. SYRINGE IVP PRN ×2 (08:05→23:43)
[2019-01-11 08:09] LABS: CREATININE 14.36 mg/dL (0.55-1.30)
[2019-01-11] MEDS: metroNIDAZOLE 500 mg/NS 100 ML IV SCH ×2 (08:12→22:11)
[2019-01-11] MEDS: CARVEDILOL 25 MG TABLET (COREG) PO SCH ×2 (09:00→22:13)
[2019-01-11] MEDS: amLODIPine BESYLATE 10 MG TABLET PO SCH (09:00)
[2019-01-11] MEDS: MINOXIDIL 10 MG TABLET (LONITEN) PO SCH ×2 (09:00→22:13)
[2019-01-11] MEDS: NIFEDIPINE 30 MG TAB.ER.24 PO SCH (09:00)
[2019-01-11] MEDS ORDERED: ONDANSETRON HCL 4 MG/2 ML VIAL IVP PRN (10:00)
[2019-01-11 11:30] VITALS: BP_SYST 147
[2019-01-11] MEDS ORDERED: HEPARIN IV FLUSH 300 UNITS/3ML SYR INJ ONE (12:45)
[2019-01-11] MEDS: CEFEPIME 1 GM in D5W 50 ML IV SCH (12:46)
[2019-01-11] MEDS ORDERED: HEPARIN SODIUM,PORCINE 5000 UNITS/ML VIAL ONE (12:49)
[2019-01-11] MEDS ORDERED: SUCRALFATE 1 GM TABLET PO ONE (13:45)
[2019-01-11] MEDS ORDERED: HEPARIN SODIUM,PORCINE 5000 UNITS/ML VIAL SUBCUT SCH (14:00)
[2019-01-11] MEDS: SUCRALFATE 1 GM TABLET PO SCH (17:08)
[2019-01-11 20:00] VITALS: BP_SYST 151
[2019-01-11] MEDS ORDERED: METOCLOPRAMIDE HCL 10 MG TABLET PO ONE (20:30)
[2019-01-11] MEDS: SPIRONOLACTONE 25 MG TABLET (ALDACTONE) PO SCH (22:12)
[2019-01-11] MEDS: PREDNISONE 20 MG TABLET PO SCH (22:14)
[2019-01-12 00:34] VITALS: BP_SYST 122
[2019-01-12] MEDS: IPRATROPIUM BROM 0.5 MG/2.5 ML VIAL.NEB (ATROVENT) INH SCH ×4 (00:43→19:31)
[2019-01-12] MEDS: ALBUTEROL SULFATE 0.083% 2.5 MG/3 ML VIAL.NEB INH SCH ×4 (00:43→19:31)
[2019-01-12] MEDS: SUCRALFATE 1 GM TABLET PO SCH ×2 (06:56→16:54)
[2019-01-12] MEDS: PANTOPRAZOLE SODIUM 40 MG TAB PO SCH ×2 (06:56→16:54)
[2019-01-12 09:01] VITALS: BP_SYST 141
[2019-01-12] MEDS: PREDNISONE 20 MG TABLET PO SCH ×2 (09:08→21:01)
[2019-01-12] MEDS: NIFEDIPINE 30 MG TAB.ER.24 PO SCH (09:09)
[2019-01-12] MEDS: MINOXIDIL 10 MG TABLET (LONITEN) PO SCH ×2 (09:09→21:02)
[2019-01-12] MEDS: amLODIPine BESYLATE 10 MG TABLET PO SCH (09:09)
[2019-01-12] MEDS: CARVEDILOL 25 MG TABLET (COREG) PO SCH ×2 (09:10→21:01)
[2019-01-12] MEDS: CEFEPIME 1 GM in D5W 50 ML IV SCH (09:13)
[2019-01-12] MEDS: metroNIDAZOLE 500 mg/NS 100 ML IV SCH ×2 (10:23→21:00)
[2019-01-12 11:41] VITALS: BP_SYST 134
[2019-01-12 15:30] VITALS: BP_SYST 145
[2019-01-12 20:00] VITALS: BP_SYST 148
[2019-01-12] MEDS: SPIRONOLACTONE 25 MG TABLET (ALDACTONE) PO SCH (21:01)
[2019-01-13 00:23] VITALS: BP_SYST 117
[2019-01-13] MEDS: ALBUTEROL SULFATE 0.083% 2.5 MG/3 ML VIAL.NEB INH SCH ×4 (01:00→19:41)
[2019-01-13] MEDS: IPRATROPIUM BROM 0.5 MG/2.5 ML VIAL.NEB (ATROVENT) INH SCH ×4 (01:50→19:41)
[2019-01-13] MEDS: SUCRALFATE 1 GM TABLET PO SCH ×2 (06:33→17:33)
[2019-01-13] MEDS: PANTOPRAZOLE SODIUM 40 MG TAB PO SCH ×2 (06:33→17:33)
[2019-01-13 06:40] LABS: BASOPHILS % (AUTO) 0.2 % (0.0-2.0); EOSINOPHILS # (AUTO) 0.1 K/uL (0.0-0.4); EOSINOPHILS % (AUTO) 0.4 % (0.0-4.0); HEMATOCRIT 22.7 % (36-54); HEMOGLOBIN 7.7 g/dL (14.0-18.0); LYMPHOCYTES # (AUTO) 0.6 K/uL (1.0-5.5); LYMPHOCYTES % (AUTO) 4.9 % (20.5-51.5); MEAN CORPUSCULAR HEMOGLOBIN 31 pg (27-31); MEAN CORPUSCULAR HGB CONC 34 % (32-36); MEAN CORPUSCULAR VOLUME 90 fL (79.0-98.0); MONOCYTES # (AUTO) 0.9 K/uL (0.0-1.0); MONOCYTES % (AUTO) 7.2 % (1.7-9.3); NEUTROPHILS # (AUTO) 11.1 K/uL (1.8-7.7); NEUTROPHILS % (AUTO) 87.3 % (40.0-70.0); PLATELET COUNT (AUTO) 75 K/uL (130-430); RED BLOOD CELL COUNT(AUTO) 2.51 MIL/uL (4.2-6.2); RED CELL DISTRIBUTION WIDTH 21.7 % (9.0-15.0); WHITE BLOOD COUNT (AUTO) 12.8 K/uL (4.8-10.8)
[2019-01-13 07:11] LABS: ALBUMIN 2.2 g/dL (3.4-4.8); CALCIUM 8.1 mg/dL (8.4-11.0); TOTAL BILIRUBIN 0.6 mg/dL (0.0-1.0)
[2019-01-13] MEDS ORDERED: ASPIRIN 325 MG TABLET (ECOTRIN) PO ONE (07:15)
[2019-01-13 07:36] LABS: CREATININE 13.98 mg/dL (0.55-1.30); POTASSIUM 6.4 mmol/L (3.5-5.1)
[2019-01-13 07:40] VITALS: BP_SYST 141
[2019-01-13] MEDS: PREDNISONE 20 MG TABLET PO SCH ×2 (08:54→21:46)
[2019-01-13 09:21] VITALS: BP_SYST 117
[2019-01-13] MEDS ORDERED: HEPARIN IV FLUSH 300 UNITS/3ML SYR IV ONE (10:30)
[2019-01-13] MEDS ORDERED: HEPARIN SODIUM,PORCINE 5000 UNITS/ML VIAL IV ONE (11:00)
[2019-01-13 11:18] VITALS: BP_SYST 110
[2019-01-13] MEDS: CEFEPIME 1 GM in D5W 50 ML IV SCH (11:31)
[2019-01-13] MEDS: CARVEDILOL 25 MG TABLET (COREG) PO SCH ×2 (11:33→21:44)
[2019-01-13] MEDS: MINOXIDIL 10 MG TABLET (LONITEN) PO SCH ×2 (11:33→21:45)
[2019-01-13] MEDS: metroNIDAZOLE 500 mg/NS 100 ML IV SCH ×2 (12:13→21:00)
[2019-01-13] MEDS: NIFEDIPINE 30 MG TAB.ER.24 PO SCH (12:18)
[2019-01-13] MEDS: amLODIPine BESYLATE 10 MG TABLET PO SCH (12:19)
[2019-01-13 16:00] VITALS: BP_SYST 128
[2019-01-13 20:15] VITALS: BP_SYST 126
[2019-01-13] MEDS: SPIRONOLACTONE 25 MG TABLET (ALDACTONE) PO SCH (21:46)
[2019-01-14 00:52] VITALS: BP_SYST 128
[2019-01-14] MEDS: PANTOPRAZOLE SODIUM 40 MG TAB PO SCH ×3 (00:53→17:54)
[2019-01-14] MEDS: metroNIDAZOLE 500 mg/NS 100 ML IV SCH ×2 (00:55→10:54)
[2019-01-14] MEDS: ALBUTEROL SULFATE 0.083% 2.5 MG/3 ML VIAL.NEB INH SCH ×3 (01:00→13:47)
[2019-01-14] MEDS: IPRATROPIUM BROM 0.5 MG/2.5 ML VIAL.NEB (ATROVENT) INH SCH ×3 (01:10→13:47)
[2019-01-14] MEDS: SUCRALFATE 1 GM TABLET PO SCH ×2 (06:13→17:54)
[2019-01-14 07:40] VITALS: BP_SYST 114
[2019-01-14] MEDS ORDERED: MEPERIDINE HCL/PF 100 MG/ML AMP ONE (08:19)
[2019-01-14] MEDS ORDERED: SIMETHICONE 40 MG/0.6 ML ML ONE (08:19)
[2019-01-14] MEDS ORDERED: MIDAZOLAM HCL 5 MG/5 ML VIAL ONE (08:20)
[2019-01-14] MEDS: CARVEDILOL 25 MG TABLET (COREG) PO SCH (10:11)
[2019-01-14] MEDS: amLODIPine BESYLATE 10 MG TABLET PO SCH (10:11)
[2019-01-14] MEDS: CEFEPIME 1 GM in D5W 50 ML IV SCH (10:11)
[2019-01-14] MEDS: PREDNISONE 20 MG TABLET PO SCH (10:11)
[2019-01-14] MEDS: MINOXIDIL 10 MG TABLET (LONITEN) PO SCH (10:12)
[2019-01-14] MEDS: NIFEDIPINE 30 MG TAB.ER.24 PO SCH (10:12)
[2019-01-14 12:36] VITALS: BP_SYST 136
[2019-01-14 14:36] VITALS: BP_SYST 132
[2019-01-14 16:47] VITALS: BP_SYST 132
== END 2019-01-14 18:00 | DRG 871 ==
LOC: SED 08:35 → STU 11:58 → SMU 01-07 10:15
PROVIDERS: ADMIT Internal Medicine Hospice and Palliative Medicine; ATTEND Internal Medicine Hospice and Palliative Medicine
PROC: 5A1D70Z Performance of Urinary Filtration, Intermittent, Less than 6 Hours Per Day (ICD-10-PCS; 2019-01-04)
PROC: 5A1D70Z Performance of Urinary Filtration, Intermittent, Less than 6 Hours Per Day (ICD-10-PCS; 2019-01-08)
PROC: 5A1D70Z Performance of Urinary Filtration, Intermittent, Less than 6 Hours Per Day (ICD-10-PCS; 2019-01-11)
PROC: 5A1D70Z Performance of Urinary Filtration, Intermittent, Less than 6 Hours Per Day (ICD-10-PCS; 2019-01-13)
PROC: 0DB68ZX Excision of Stomach, Via Natural or Artificial Opening Endoscopic, Diagnostic (ICD-10-PCS; principal; 2019-01-14 08:00)
DX: A41.9 Sepsis, unspecified organism (principal); N18.6 End stage renal disease; J69.0 Pneumonitis due to inhalation of food and vomit; I63.9 Cerebral infarction, unspecified; I50.43 Acute on chronic combined systolic (congestive) and diastolic (congestive) heart failure; I13.2 Hypertensive heart and chronic kidney disease with heart failure and with stage 5 chronic kidney disease, or end stage renal disease; I42.9 Cardiomyopathy, unspecified; K22.10 Ulcer of esophagus without bleeding; J44.9 Chronic obstructive pulmonary disease, unspecified; D63.8 Anemia in other chronic diseases classified elsewhere; F17.210 Nicotine dependence, cigarettes, uncomplicated; K21.9 Gastro-esophageal reflux disease without esophagitis; K29.70 Gastritis, unspecified, without bleeding; K29.80 Duodenitis without bleeding; K44.9 Diaphragmatic hernia without obstruction or gangrene; Z66 Do not resuscitate; Z80.8 Family history of malignant neoplasm of other organs or systems; Z82.49 Family history of ischemic heart disease and other diseases of the circulatory system; Z99.2 Dependence on renal dialysis
CPT/HCPCS: 36415; 43239; 70450-TC; 70551; 71045; 80048; 80053; 80074; 82962; 83605; 83880; 84484; 85007; 85025; 85027; 85379; 85610-TC; 85730-TC; 87040-TC; 87081; 88305; 88312; 88313; 90935; 90937; 93005; 93306; 93880; 94640; 94760; 96365; 96375; 97116-GP; 97530-GP; 99285; G0378; J0360; J0456; J0692; J0696; J1644; J1885; J2175; J2250; J2270; J2405; J2930; J3490; J7030; J7050; J7060; J7512; J7613; J8597